=== PATIENT | male | born 1960 | race Caucasian/White ===

== ENCOUNTER 2017-02-13 22:21 | Emergency (ER) | payer MEDICARE, MEDICAID ==
[~2017-02-13] VITALS: Ht 170.2 cm; Wt 69.6 kg
[~2017-02-13 22:21] MED LIST: ACET-1757 PO; ALBU6.7H PO; BECL8.7A5 INH; ENAL10TA46 PO; ENOX40SY4 SQ; INSU100C SQ-INSULIN; INSU100I18 SQ-INSULIN; INSU100I28 SQ; INSU100V13 SQ; INSU100V5 SQ-INSULIN; LEVO750T6 PO; MAGN400T26 PO; METF500T4 PO; METF850T PO; METO25TA91 PO; NICO1PAT10 TD; OXYC5TAB3 PO; PROC5TAB40 PO; PROM25TA10 PO; SERT50TA PO
[2017-02-13] MEDS ORDERED: LIDOCAINE 1%-EPI 1:100K, 20ML ONE (23:13)
[2017-02-13] MEDS ORDERED: SODIUM CHLORIDE 0.9% 1,000ML IVBOLUS ONE (23:30)
[2017-02-14] MEDS ORDERED: INSULIN REGULAR 100 UNITS/ML, 3ML VIAL ONE ×2 (00:04→00:05)
[2017-02-14 00:28] VITALS: BP 151/84
[2017-02-14] MEDS ORDERED: INSULIN REGULAR 100 UNITS/ML, 3ML VIAL SQ-INSULIN SCH (07:00)
== END 2017-02-14 00:30 | disposition home or self-care (01) ==
LOC: ED 23:59
DX: H10.232 Serous conjunctivitis, except viral, left eye (principal); L72.3 Sebaceous cyst; E11.65 Type 2 diabetes mellitus with hyperglycemia; F32.9 Major depressive disorder, single episode, unspecified; Z90.49 Acquired absence of other specified parts of digestive tract; F17.200 Nicotine dependence, unspecified, uncomplicated
CPT/HCPCS: 82962; 96372; 99283

== ENCOUNTER 2017-04-01 12:55 | Emergency (ER) | payer MEDICARE, MEDICAID ==
[~2017-04-01] VITALS: Ht 170.2 cm; Wt 68.1 kg
[2017-04-01 12:56] VITALS: BP 122/87
[2017-04-01] MEDS ORDERED: SODIUM CHLORIDE FLUSH 10ML SYR IVF ONE (14:00)
[2017-04-01] MEDS ORDERED: MORPHINE SULFATE 4 MG/ML, 1ML IVPush PRN (14:00)
[2017-04-01] MEDS ORDERED: SODIUM CHLORIDE 0.9% 1,000ML IVBOLUS ONE (14:00)
[2017-04-01] MEDS ORDERED: ONDANSETRON 2MG/ML, 2ML IVPush ONE (14:00)
== END 2017-04-01 13:57 | disposition left against medical advice (07) ==
LOC: ED 13:52
DX: R10.9 Unspecified abdominal pain (principal)
CPT/HCPCS: 99281

== ENCOUNTER 2017-04-03 10:20 | Inpatient (IN) | payer MEDICARE, MEDICAID ==
[~2017-04-03] VITALS: Ht 170.2 cm; Wt 74.5 kg
[2017-04-03] MEDS ORDERED: PIPERACILLIN/TAZO/PMX 3.375GM 50 ML ONE (10:50)
[2017-04-03] MEDS ORDERED: MORPHINE SULFATE 4 MG/ML, 1ML ONE (10:50)
[2017-04-03] MEDS ORDERED: ONDANSETRON 2MG/ML, 2ML ONE (10:51)
[2017-04-03] MEDS ORDERED: PIPERACILLIN/TAZO/PMX 3.375GM 50 ML IV ONE (11:00)
[2017-04-03] MEDS ORDERED: ONDANSETRON 2MG/ML, 2ML IVPush ONE (11:00)
[2017-04-03] MEDS ORDERED: SODIUM CHLORIDE 0.9% 1,000ML IVBOLUS ONE (11:00)
[2017-04-03] MEDS ORDERED: SODIUM CHLORIDE FLUSH 10ML SYR IVF ONE (11:00)
[2017-04-03] MEDS ORDERED: MORPHINE SULFATE 4 MG/ML, 1ML IVPush PRN (11:00)
[2017-04-03 11:31] LABS: BLOOD UREA NITROGEN 14 mg/dL (7-18)
[2017-04-03] MEDS ORDERED: INSULIN REGULAR 100 UNITS/ML, 3ML VIAL SQ-INSULIN ONE ×2 (12:00)
[2017-04-03] MEDS ORDERED: SODIUM CHLORIDE 0.9%, 500ML IVBOLUS ONE (12:00)
[2017-04-03] MEDS ORDERED: INSULIN SINGLE DOSE, ER SQ-INSULIN ONE (12:46)
[2017-04-03] MEDS ORDERED: LIDOCAINE 1%, 20ML ONE (13:00)
[2017-04-03] MEDS ORDERED: POLYETHYLENE GLYCOL 17 GM PACKET PO PRN (14:00)
[2017-04-03] MEDS ORDERED: VANCOMYCIN PER PHARMACY MC PRN (14:00)
[2017-04-03] MEDS ORDERED: ONDANSETRON 2MG/ML, 2ML IVP PRN (14:00)
[2017-04-03] MEDS ORDERED: OMNIPAQUE 350 MG/ML, 100ML BOTTLE ONE (14:22)
[2017-04-03] MEDS: HYDROcodone/APAP 5/325 TABLET PO PRN (15:27)
[2017-04-03] MEDS: ENOXAPARIN 40 MG/0.4 ML SQ SCH (15:27)
[2017-04-03] MEDS: SODIUM CHLORIDE 0.9% 1,000 ML IV SCH (15:27)
[2017-04-03] MEDS: CEFTRIAXONE PMX 2GM/50ML 50 ML IV SCH (15:31)
[2017-04-03] MEDS ORDERED: PROMETHAZINE 25MG TABLET PO PRN (16:00)
[2017-04-03] MEDS ORDERED: PHARMACOKINETIC MONITORING MC PRN (17:00)
[2017-04-03] MEDS ORDERED: PHARMACOKINETIC CONSULTATION MC ONE (17:00)
[2017-04-03] MEDS: VANCOMYCIN 1,300 MG in SODIUM CHLORIDE 0.9% 250 ML IV SCH (18:09)
[2017-04-03] MEDS: INSULIN REGULAR 100 UNITS/ML, 3ML VIAL SQ-INSULIN SCH ×2 (18:10→21:02)
[2017-04-03 19:10] VITALS: BP 100/68
[2017-04-03] MEDS: INSULIN DETEMIR 100 UNITS/ML, PEN SQ-INSULIN SCH (21:34)
[2017-04-04] VITALS (7 sets, daily range): BP systolic 95–122; BP diastolic 60–75
[2017-04-04] MEDS: SODIUM CHLORIDE 0.9% 1,000 ML IV SCH ×3 (01:03→20:16)
[2017-04-04] MEDS: HYDROcodone/APAP 5/325 TABLET PO PRN ×3 (01:06→16:01)
[2017-04-04] MEDS ORDERED: ALBUTEROL SULFATE 2.5 MG/3 ML NPPB PRN (03:00)
[2017-04-04 06:33] LABS: BLOOD UREA NITROGEN 17 mg/dL (7-18)
[2017-04-04] MEDS: INSULIN REGULAR 100 UNITS/ML, 3ML VIAL SQ-INSULIN SCH ×4 (07:00→20:19)
[2017-04-04] MEDS: ALBUTEROL SULFATE 2.5 MG/3 ML NPPB SCH (07:14)
[2017-04-04] MEDS: SERTRALINE 50MG TABLET PO SCH (08:14)
[2017-04-04] MEDS: ENALAPRIL 10 MG TABLET PO SCH (08:17)
[2017-04-04] MEDS ORDERED: ENALAPRIL 10 MG TABLET PO SCH (09:00)
[2017-04-04] MEDS: FLUTICASONE FUROATE 100MCG/INH INH SCH ×2 (09:00→10:46)
[2017-04-04] MEDS ORDERED: POTASSIUM CHLORIDE 20 MEQ TAB.ER.PRT PO ONE (10:30)
[2017-04-04] MEDS ORDERED: MAGNESIUM SULFATE PMX 2GM/50ML 50 ML IV ONE (10:30)
[2017-04-04] MEDS: VANCOMYCIN 1,300 MG in SODIUM CHLORIDE 0.9% 250 ML IV SCH (13:38)
[2017-04-04] MEDS: MORPHINE SULFATE 4 MG/ML, 1ML IVPush PRN ×2 (13:53→23:58)
[2017-04-04] MEDS: ENOXAPARIN 40 MG/0.4 ML SQ SCH (16:03)
[2017-04-04] MEDS: CEFTRIAXONE PMX 2GM/50ML 50 ML IV SCH (17:10)
[2017-04-04] MEDS: INSULIN DETEMIR 100 UNITS/ML, PEN SQ-INSULIN SCH (20:22)
[2017-04-05 01:30] VITALS: BP 110/76
[2017-04-05 02:03] LABS: OCCBLD LOT 11623038031; OCCBLD OBC PASS
[2017-04-05] MEDS: SODIUM CHLORIDE 0.9% 1,000 ML IV SCH (04:21)
[2017-04-05] MEDS: MORPHINE SULFATE 4 MG/ML, 1ML IVPush PRN ×3 (04:21→20:34)
[2017-04-05] MEDS: VANCOMYCIN 1,300 MG in SODIUM CHLORIDE 0.9% 250 ML IV SCH ×2 (04:21→22:42)
[2017-04-05 06:06] LABS: BLOOD UREA NITROGEN 12 mg/dL (7-18)
[2017-04-05] MEDS: INSULIN REGULAR 100 UNITS/ML, 3ML VIAL SQ-INSULIN SCH ×4 (07:00→20:35)
[2017-04-05 07:49] VITALS: BP 118/75
[2017-04-05] MEDS: ENALAPRIL 10 MG TABLET PO SCH (08:05)
[2017-04-05] MEDS: HYDROcodone/APAP 5/325 TABLET PO PRN ×4 (08:05→23:28)
[2017-04-05] MEDS: SERTRALINE 50MG TABLET PO SCH (08:05)
[2017-04-05] MEDS: FLUTICASONE FUROATE 100MCG/INH INH SCH (08:06)
[2017-04-05] MEDS: ALBUTEROL SULFATE 2.5 MG/3 ML NPPB SCH (09:00)
[2017-04-05 13:44] VITALS: BP 111/75
[2017-04-05] MEDS: MAGNESIUM OXIDE 400 MG TABLET PO SCH (13:55)
[2017-04-05] MEDS: ENOXAPARIN 40 MG/0.4 ML SQ SCH (17:31)
[2017-04-05 19:41] VITALS: BP 111/81
[2017-04-05] MEDS: INSULIN DETEMIR 100 UNITS/ML, PEN SQ-INSULIN SCH (20:34)
[2017-04-06 01:26] VITALS: BP 107/58
[2017-04-06] MEDS: HYDROcodone/APAP 5/325 TABLET PO PRN ×3 (04:59→20:26)
[2017-04-06 06:51] VITALS: BP 106/63
[2017-04-06 07:03] LABS: BLOOD UREA NITROGEN 15 mg/dL (7-18)
[2017-04-06] MEDS: INSULIN REGULAR 100 UNITS/ML, 3ML VIAL SQ-INSULIN SCH ×4 (07:20→20:29)
[2017-04-06] MEDS: SERTRALINE 50MG TABLET PO SCH (08:32)
[2017-04-06] MEDS: ENALAPRIL 10 MG TABLET PO SCH (08:32)
[2017-04-06] MEDS: FLUTICASONE FUROATE 100MCG/INH INH SCH (08:32)
[2017-04-06] MEDS: MAGNESIUM OXIDE 400 MG TABLET PO SCH (08:32)
[2017-04-06] MEDS: MORPHINE SULFATE 4 MG/ML, 1ML IVPush PRN (08:35)
[2017-04-06] MEDS: ALBUTEROL SULFATE 2.5 MG/3 ML NPPB SCH (09:00)
[2017-04-06] MEDS ORDERED: SULF1TAB3 PO (13:13)
[2017-04-06] MEDS ORDERED: INSU100I28 SQ (13:13)
[2017-04-06 13:35] VITALS: BP 131/83
[2017-04-06] MEDS: ENOXAPARIN 40 MG/0.4 ML SQ SCH (16:11)
[2017-04-06 19:31] VITALS: BP 116/73
[2017-04-06] MEDS: SULFAMETH./TRIMETHOPRIM DS 800MG/160MG TABLET PO SCH (20:26)
[2017-04-06] MEDS ORDERED: INSULIN DETEMIR 100 UNITS/ML, PEN SQ-INSULIN SCH (21:00)
[2017-04-07 01:28] VITALS: BP 118/75
[2017-04-07] MEDS: HYDROcodone/APAP 5/325 TABLET PO PRN ×2 (01:30→08:16)
[2017-04-07] MEDS: INSULIN REGULAR 100 UNITS/ML, 3ML VIAL SQ-INSULIN SCH ×2 (07:00→12:56)
[2017-04-07 07:49] VITALS: BP 114/75
[2017-04-07] MEDS: SERTRALINE 50MG TABLET PO SCH (08:17)
[2017-04-07] MEDS: SULFAMETH./TRIMETHOPRIM DS 800MG/160MG TABLET PO SCH (08:17)
[2017-04-07] MEDS: ENALAPRIL 10 MG TABLET PO SCH (08:17)
[2017-04-07] MEDS: MAGNESIUM OXIDE 400 MG TABLET PO SCH (08:17)
[2017-04-07] MEDS: FLUTICASONE FUROATE 100MCG/INH INH SCH (08:18)
[2017-04-07] MEDS: MORPHINE SULFATE 4 MG/ML, 1ML IVPush PRN (10:45)
[2017-04-07 12:45] VITALS: BP 109/69
== END 2017-04-07 16:39 | DRG 580 ==
LOC: ED 10:45 → EDIP 13:22 → 3NE 14:36
PROVIDERS: ADMIT Internal Medicine; ATTEND Internal Medicine
PROC: 0J9C0ZZ Drainage of Pelvic Region Subcutaneous Tissue and Fascia, Open Approach (ICD-10-PCS; principal; 2017-04-03)
DX: L02.214 Cutaneous abscess of groin (principal); I47.1 Supraventricular tachycardia; B18.2 Chronic viral hepatitis C; D64.9 Anemia, unspecified; E11.649 Type 2 diabetes mellitus with hypoglycemia without coma; E11.65 Type 2 diabetes mellitus with hyperglycemia; E83.42 Hypomagnesemia; L03.314 Cellulitis of groin; I10 Essential (primary) hypertension; E87.6 Hypokalemia; G89.29 Other chronic pain; Z59.0 Homelessness; Z88.1 Allergy status to other antibiotic agents; Z88.5 Allergy status to narcotic agent; S30.1XXA Contusion of abdominal wall, initial encounter
CPT/HCPCS: 10060; 36415; 71010; 72193; 80048; 82040; 82272; 82962; 83036; 83605; 83735; 85025; 85610; 87040; 87070; 87077; 87186; 87205; 93005; 94640; 96365; 96372; 96375; J0696; J1650; J1815; J2405; J2543; J3370; J7613; Q9967; J3475; J7030; J7040; J7050

== ENCOUNTER 2017-09-14 20:07 | Inpatient (IN) | payer MEDICARE, MEDICAID ==
[~2017-09-14] VITALS: Ht 170.2 cm; Wt 72.8 kg
[~2017-09-14 20:07] MED LIST changes: -BECL8.7A5 INH; +BECL8.7A7 INH; -ENAL10TA46 PO; +ENAL10TA71 PO; +NICO-485 TD; -NICO1PAT10 TD; +SULF-169 PO
[2017-09-14] MEDS ORDERED: SODIUM CHLORIDE FLUSH 10ML SYR IVF ONE (20:30)
[2017-09-14] MEDS ORDERED: SODIUM CHLORIDE 0.9% 1,000ML IVBOLUS ONE ×2 (20:30→22:30)
[2017-09-14 20:56] LABS: HEMATOCRIT 49.1 % (39.2-51.8); HEMOGLOBIN 16.8 g/dL (13.7-18.0); PH, VENOUS 7.363 pH (7.320-7.420)
[2017-09-14 21:08] LABS: ASPARTATE AMINO TRANSFERASE 21 U/L (15-37); BLOOD UREA NITROGEN 15 mg/dL (7-18)
[2017-09-14 21:15] LABS: IS PT STATUS REG ER OR PRE ER? YES
[2017-09-14 21:20] LABS: DIFF TOTAL CELLS COUNTED 100 CELL DIFF
[2017-09-14 21:22] LABS: VERIFY COUNTS? YES
[2017-09-14] MEDS ORDERED: INSULIN REGULAR 100 UNITS/ML, 3ML VIAL IVPush ONE (23:00)
[2017-09-14] MEDS ORDERED: OMNIPAQUE 350 MG/ML, 100ML BOTTLE ONE (23:43)
[2017-09-15] MEDS ORDERED: INSULIN REGULAR 100 UNITS/ML, 3ML VIAL ONE (00:31)
[2017-09-15] MEDS ORDERED: SODIUM CHLORIDE 0.9% 1,000ML IVBOLUS ONE (01:00)
[2017-09-15] MEDS ORDERED: SODIUM CHLORIDE 0.9% 1,000 ML IV SCH (02:07)
[2017-09-15] MEDS ORDERED: DEXTROSE 4 GM TAB.CHEW PO PRN (02:30)
[2017-09-15] MEDS ORDERED: PROMETHAZINE 25MG TABLET PO PRN (02:30)
[2017-09-15] MEDS ORDERED: DEXTROSE 50%, 50ML SYRINGE IVPush PRN (02:30)
[2017-09-15] MEDS ORDERED: ONDANSETRON 2MG/ML, 2ML IVPush PRN (02:30)
[2017-09-15] MEDS ORDERED: GLUCAGON 1 MG IM PRN (02:30)
[2017-09-15] MEDS ORDERED: hydrALAzine 20 MG/ML, 1ML IVPush PRN (02:30)
[2017-09-15] MEDS ORDERED: LEVOFLOXACIN/PMX 750MG/150ML 150 ML IV SCH (02:30)
[2017-09-15] MEDS ORDERED: LABETALOL 5MG/ML, 20ML IVPush PRN (02:30)
[2017-09-15] MEDS ORDERED: LEVOFLOXACIN/PMX 750MG/150ML 150 ML ONE (03:45)
[2017-09-15] MEDS ORDERED: ENOXAPARIN 40 MG/0.4 ML ONE (03:45)
[2017-09-15] MEDS: ENOXAPARIN 40 MG/0.4 ML SQ SCH (03:59)
[2017-09-15] MEDS ORDERED: ALBUTEROL SULFATE 2.5 MG/3 ML ONE (04:33)
[2017-09-15] MEDS ORDERED: ALBUTEROL SULFATE 2.5 MG/3 ML NPPB PRN (05:00)
[2017-09-15 06:00] LABS: ASPARTATE AMINO TRANSFERASE 20 U/L (15-37); BLOOD UREA NITROGEN 12 mg/dL (7-18)
[2017-09-15 06:02] LABS: IS PT STATUS REG ER OR PRE ER? YES
[2017-09-15] MEDS: INSULIN ASPART 100 UNITS/ML, PEN SQ-INSULIN SCH ×3 (08:29→22:13)
[2017-09-15] MEDS ORDERED: metFORMIN 500 MG TABLET PO SCH (09:00)
[2017-09-15] MEDS: ALBUTEROL SULFATE PO SCH (09:00)
[2017-09-15] MEDS: SERTRALINE 50MG TABLET PO SCH (09:00)
[2017-09-15] MEDS: SODIUM CHLORIDE FLUSH 10ML SYR IVF SCH ×2 (09:00→22:12)
[2017-09-15] MEDS ORDERED: ENALAPRIL 10 MG TABLET PO SCH (09:00)
[2017-09-15] MEDS ORDERED: POTASSIUM PHOSPHATE 22 MEQ in SODIUM CHLORIDE 0.9% 500 ML IV ONE (09:30)
[2017-09-15] MEDS ORDERED: MAGNESIUM SULFATE PMX 2GM/50ML 50 ML IV ONE (09:30)
[2017-09-15] MEDS: FLUTICASONE FUROATE 200MCG/INH INH SCH (11:54)
[2017-09-15 13:46] LABS: BLOOD UREA NITROGEN 14 mg/dL (7-18)
[2017-09-15 13:56] LABS: IS PT STATUS REG ER OR PRE ER? YES
[2017-09-15] MEDS ORDERED: morphine SULFATE 10 MG/ML, 1ML ONE (14:26)
[2017-09-15] MEDS: morphine SULFATE 10 MG/ML, 1ML IVPush PRN (14:28)
[2017-09-15 15:31] VITALS: BP 117/75
[2017-09-15] MEDS ORDERED: MAGNESIUM SULFATE PMX 4GM/100M 100 ML IV ONE (16:30)
[2017-09-15] MEDS: METOPROLOL TARTRATE 25 MG TABLET PO SCH (18:09)
[2017-09-15 19:15] VITALS: BP 109/73
[2017-09-15] MEDS ORDERED: INSULIN DETEMIR 100 UNITS/ML, PEN SQ-INSULIN SCH ×2 (21:00)
[2017-09-15] MEDS: AZITHROMYCIN 500 MG in SODIUM CHLORIDE 0.9% 250 ML IV SCH (22:14)
[2017-09-15] MEDS: SODIUM CHLORIDE 0.9% 1,000 ML IV SCH (22:14)
[2017-09-15] MEDS: CEFTRIAXONE PMX 1GM/50ML 50 ML IV SCH (23:41)
[2017-09-16 03:00] VITALS: BP 108/74
[2017-09-16 05:13] VITALS: BP 116/76
[2017-09-16] MEDS: SODIUM CHLORIDE 0.9% 1,000 ML IV SCH ×3 (05:15→17:50)
[2017-09-16] MEDS: METOPROLOL TARTRATE 25 MG TABLET PO SCH ×2 (05:16→16:53)
[2017-09-16] MEDS: ENOXAPARIN 40 MG/0.4 ML SQ SCH (05:16)
[2017-09-16 05:56] LABS: BLOOD UREA NITROGEN 12 mg/dL (7-18)
[2017-09-16 06:24] LABS: HEMATOCRIT 41.7 % (39.2-51.8); HEMOGLOBIN 14.2 g/dL (13.7-18.0); WHITE BLOOD COUNT 10.1 x10^3/uL (3.4-10)
[2017-09-16 06:55] VITALS: BP 103/70
[2017-09-16] MEDS: INSULIN ASPART 100 UNITS/ML, PEN SQ-INSULIN SCH ×4 (07:00→20:56)
[2017-09-16] MEDS: ALBUTEROL SULFATE PO SCH (09:00)
[2017-09-16] MEDS: SERTRALINE 50MG TABLET PO SCH (10:35)
[2017-09-16] MEDS: SODIUM CHLORIDE FLUSH 10ML SYR IVF SCH ×2 (10:36→20:57)
[2017-09-16] MEDS: ENALAPRIL 10 MG TABLET PO SCH (10:36)
[2017-09-16] MEDS: FLUTICASONE FUROATE 200MCG/INH INH SCH (10:36)
[2017-09-16] MEDS ORDERED: DEXTROSE 50%, 50ML SYRINGE IVPush SCH (11:30)
[2017-09-16] MEDS ORDERED: POTASSIUM PHOSPHATE 44 MEQ in SODIUM CHLORIDE 0.9% 500 ML IV ONE (12:00)
[2017-09-16] MEDS: LACTOBACILLUS CHEW TABLET PO SCH ×3 (12:40→20:54)
[2017-09-16] MEDS: INSULIN DETEMIR 100 UNITS/ML, PEN SQ-INSULIN SCH ×2 (12:41→20:56)
[2017-09-16 13:40] VITALS: BP 106/69
[2017-09-16 19:18] VITALS: BP 96/62
[2017-09-16] MEDS: morphine SULFATE 10 MG/ML, 1ML IVPush PRN (20:55)
[2017-09-16] MEDS: AZITHROMYCIN 500 MG in SODIUM CHLORIDE 0.9% 250 ML IV SCH (21:11)
[2017-09-16] MEDS: CEFTRIAXONE PMX 1GM/50ML 50 ML IV SCH (23:26)
[2017-09-17 01:11] VITALS: BP 104/64
[2017-09-17 05:40] VITALS: BP 105/65
[2017-09-17] MEDS: METOPROLOL TARTRATE 25 MG TABLET PO SCH ×2 (05:54→18:09)
[2017-09-17] MEDS: SODIUM CHLORIDE 0.9% 1,000 ML IV SCH ×2 (05:54→16:01)
[2017-09-17] MEDS: ENOXAPARIN 40 MG/0.4 ML SQ SCH (05:55)
[2017-09-17 06:13] LABS: BLOOD UREA NITROGEN 17 mg/dL (7-18)
[2017-09-17 06:16] LABS: HEMATOCRIT 43.2 % (39.2-51.8); HEMOGLOBIN 14.6 g/dL (13.7-18.0); WHITE BLOOD COUNT 8.2 x10^3/uL (3.4-10)
[2017-09-17 06:40] VITALS: BP 105/71
[2017-09-17] MEDS: INSULIN ASPART 100 UNITS/ML, PEN SQ-INSULIN SCH ×4 (07:00→20:29)
[2017-09-17] MEDS ORDERED: ACETAMINOPHEN 325 MG TABLET PO PRN ×2 (08:30→20:30)
[2017-09-17] MEDS ORDERED: MAGNESIUM SULFATE PMX 2GM/50ML 50 ML IV ONE (08:30)
[2017-09-17] MEDS ORDERED: POTASSIUM PHOSPHATE 44 MEQ in SODIUM CHLORIDE 0.9% 500 ML IV ONE (08:30)
[2017-09-17] MEDS: ALBUTEROL SULFATE PO SCH (09:00)
[2017-09-17] MEDS: SERTRALINE 50MG TABLET PO SCH (09:19)
[2017-09-17] MEDS: FLUTICASONE FUROATE 200MCG/INH INH SCH (09:19)
[2017-09-17] MEDS: LACTOBACILLUS CHEW TABLET PO SCH ×3 (09:20→20:28)
[2017-09-17] MEDS: ENALAPRIL 10 MG TABLET PO SCH (09:20)
[2017-09-17] MEDS: SODIUM CHLORIDE FLUSH 10ML SYR IVF SCH ×2 (09:20→20:28)
[2017-09-17] MEDS: BUTALB/APAP/CAFFEINE 50MG/325MG/40MG PO PRN (09:41)
[2017-09-17 12:40] VITALS: BP 103/70
[2017-09-17] MEDS: LEVOFLOXACIN/PMX 750MG/150ML 150 ML IV SCH (16:01)
[2017-09-17 20:23] VITALS: BP 124/87
[2017-09-17] MEDS: INSULIN DETEMIR 100 UNITS/ML, PEN SQ-INSULIN SCH (20:28)
[2017-09-17] MEDS ORDERED: GLUCAGON 1 MG IM PRN (20:30)
[2017-09-17] MEDS ORDERED: ONDANSETRON 2MG/ML, 2ML IVPush PRN (20:30)
[2017-09-17] MEDS ORDERED: DEXTROSE 4 GM TAB.CHEW PO PRN (20:30)
[2017-09-17] MEDS ORDERED: LABETALOL 5MG/ML, 20ML IVPush PRN (20:30)
[2017-09-17] MEDS ORDERED: ALBUTEROL SULFATE 2.5 MG/3 ML NPPB PRN (20:30)
[2017-09-17] MEDS ORDERED: PROMETHAZINE 25MG TABLET PO PRN (20:30)
[2017-09-17] MEDS ORDERED: hydrALAzine 20 MG/ML, 1ML IVPush PRN (20:30)
[2017-09-18 01:10] VITALS: BP 127/83
[2017-09-18] MEDS: SODIUM CHLORIDE 0.9% 1,000 ML IV SCH ×3 (02:00→16:51)
[2017-09-18 05:09] VITALS: BP 134/88
[2017-09-18] MEDS: ENOXAPARIN 40 MG/0.4 ML SQ SCH (05:14)
[2017-09-18] MEDS: METOPROLOL TARTRATE 25 MG TABLET PO SCH ×2 (05:14→18:24)
[2017-09-18 08:12] VITALS: BP 128/82
[2017-09-18] MEDS: ENALAPRIL 10 MG TABLET PO SCH (08:17)
[2017-09-18] MEDS: SODIUM CHLORIDE FLUSH 10ML SYR IVF SCH ×2 (08:17→21:10)
[2017-09-18] MEDS: FLUTICASONE FUROATE 200MCG/INH INH SCH (08:17)
[2017-09-18] MEDS: ALBUTEROL SULFATE PO SCH (08:17)
[2017-09-18] MEDS: LACTOBACILLUS CHEW TABLET PO SCH ×3 (08:17→21:10)
[2017-09-18] MEDS: INSULIN ASPART 100 UNITS/ML, PEN SQ-INSULIN SCH ×4 (08:17→21:11)
[2017-09-18] MEDS: SERTRALINE 50MG TABLET PO SCH (08:18)
[2017-09-18 14:03] VITALS: BP 143/88
[2017-09-18] MEDS: LEVOFLOXACIN/PMX 750MG/150ML 150 ML IV SCH (15:45)
[2017-09-18] MEDS: BUTALB/APAP/CAFFEINE 50MG/325MG/40MG PO PRN (18:22)
[2017-09-18 18:50] VITALS: BP 124/78
[2017-09-18] MEDS: INSULIN DETEMIR 100 UNITS/ML, PEN SQ-INSULIN SCH (21:10)
[2017-09-19] MEDS: SODIUM CHLORIDE 0.9% 1,000 ML IV SCH ×3 (00:43→12:32)
[2017-09-19 02:27] VITALS: BP 110/74
[2017-09-19] MEDS: ENOXAPARIN 40 MG/0.4 ML SQ SCH (05:43)
[2017-09-19] MEDS: METOPROLOL TARTRATE 25 MG TABLET PO SCH ×2 (05:44→17:25)
[2017-09-19 06:01] LABS: HEMOGLOBIN 14.3 g/dL (13.7-18.0)
[2017-09-19 06:02] LABS: BLOOD UREA NITROGEN 14 mg/dL (7-18)
[2017-09-19] MEDS: INSULIN ASPART 100 UNITS/ML, PEN SQ-INSULIN SCH ×4 (07:00→20:40)
[2017-09-19 08:00] VITALS: BP 124/80
[2017-09-19] MEDS: ALBUTEROL SULFATE PO SCH (09:00)
[2017-09-19] MEDS: SERTRALINE 50MG TABLET PO SCH (09:12)
[2017-09-19] MEDS: ENALAPRIL 10 MG TABLET PO SCH (09:12)
[2017-09-19] MEDS: FLUTICASONE FUROATE 200MCG/INH INH SCH (09:12)
[2017-09-19] MEDS: LACTOBACILLUS CHEW TABLET PO SCH ×3 (09:12→20:39)
[2017-09-19] MEDS: SODIUM CHLORIDE FLUSH 10ML SYR IVF SCH ×2 (09:13→20:39)
[2017-09-19] MEDS: GUAIFENESIN 200 MG TABLET PO SCH ×3 (12:22→20:39)
[2017-09-19 14:00] VITALS: BP 120/79
[2017-09-19] MEDS: LEVOFLOXACIN/PMX 750MG/150ML 150 ML IV SCH (15:50)
[2017-09-19 19:03] VITALS: BP 113/74
[2017-09-19] MEDS: INSULIN DETEMIR 100 UNITS/ML, PEN SQ-INSULIN SCH (20:39)
[2017-09-20 01:08] VITALS: BP 108/66
[2017-09-20] MEDS: ENOXAPARIN 40 MG/0.4 ML SQ SCH (05:42)
[2017-09-20] MEDS: GUAIFENESIN 200 MG TABLET PO SCH ×2 (05:43→11:43)
[2017-09-20] MEDS: METOPROLOL TARTRATE 25 MG TABLET PO SCH (05:43)
[2017-09-20 09:00] VITALS: BP_SYST 156; BP_SYST 99; BP_DIAS 66; BP_DIAS 95
[2017-09-20] MEDS: ALBUTEROL SULFATE PO SCH (09:00)
[2017-09-20] MEDS: SERTRALINE 50MG TABLET PO SCH (09:37)
[2017-09-20] MEDS: LACTOBACILLUS CHEW TABLET PO SCH (09:38)
[2017-09-20] MEDS: FLUTICASONE FUROATE 200MCG/INH INH SCH (09:41)
[2017-09-20] MEDS: ENALAPRIL 10 MG TABLET PO SCH (09:41)
[2017-09-20] MEDS: INSULIN ASPART 100 UNITS/ML, PEN SQ-INSULIN SCH ×2 (09:43→11:50)
[2017-09-20] MEDS: SODIUM CHLORIDE FLUSH 10ML SYR IVF SCH (09:44)
[2017-09-20] MEDS ORDERED: METO25TA35 PO (11:50)
[2017-09-20] MEDS ORDERED: LEVO750T26 PO (11:50)
[2017-09-20] MEDS ORDERED: GUAI200T3 PO (11:50)
[2017-09-20] MEDS ORDERED: INSU100V13 SC (13:58)
[2017-09-20] MEDS ORDERED: INSU100V5 SQ-INSULIN (13:59)
[2017-09-20] MEDS ORDERED: INSULIN REGULAR 100 UNITS/ML, 3ML VIAL SQ-INSULIN SCH (16:00)
[2017-09-20] MEDS ORDERED: INSULIN DETEMIR 100 UNITS/ML, PEN SQ-INSULIN SCH (21:00)
== END 2017-09-20 14:16 | disposition home or self-care (01) | DRG 871 ==
LOC: ED 22:32 → EDIP 09-15 01:14 → SUATTDRO 09-15 01:24 → 4WST 09-15 14:59
PROVIDERS: ADMIT Hospitalist; ATTEND Internal Medicine
DX: A41.9 Sepsis, unspecified organism (principal); J96.01 Acute respiratory failure with hypoxia; J18.9 Pneumonia, unspecified organism; I11.0 Hypertensive heart disease with heart failure; E11.40 Type 2 diabetes mellitus with diabetic neuropathy, unspecified; E87.2 Acidosis; E11.65 Type 2 diabetes mellitus with hyperglycemia; I47.1 Supraventricular tachycardia; I50.32 Chronic diastolic (congestive) heart failure; E87.1 Hypo-osmolality and hyponatremia; E83.39 Other disorders of phosphorus metabolism; E83.42 Hypomagnesemia; E86.0 Dehydration; G89.29 Other chronic pain; F17.200 Nicotine dependence, unspecified, uncomplicated; D63.8 Anemia in other chronic diseases classified elsewhere; B18.2 Chronic viral hepatitis C; I34.0 Nonrheumatic mitral (valve) insufficiency; Z71.6 Tobacco abuse counseling; R79.1 Abnormal coagulation profile; F32.9 Major depressive disorder, single episode, unspecified; Z79.84 Long term (current) use of oral hypoglycemic drugs; Z79.4 Long term (current) use of insulin; Z79.899 Other long term (current) drug therapy; Z59.0 Homelessness; Z88.6 Allergy status to analgesic agent; Z88.1 Allergy status to other antibiotic agents; Z91.018 Allergy to other foods
CPT/HCPCS: 36415; 71010; 71020; 71275; 80048; 80053; 80061; 81003; 82010; 82803; 82962; 83036; 83605; 83735; 84100; 84443; 84484; 85025; 85379; 87040; 87070; 87205; 93005; 93306; 96361; 96374; 96375; J0456; J0696; J1650; J1815; J1956; Q9967; J2270; J3475; J7030; J7040; J7050